=== PATIENT | female | born 1985 | race African-American/Black ===

== ENCOUNTER 2019-12-08 12:08 | Emergency (ER) | payer OTHER ==
[~2019-12-08] VITALS: Ht 172.7 cm; Wt 122.5 kg
[~2019-12-08 12:08] MED LIST: COLACE100 MG PO; IBUPROFEN 800800 MG PO; NORCO 5-325 TA1 EACH PO; PERCOCET 5-3251 EACH; PERCOCET 5-3251 EACH PO; PHENERGAN 25 MG25 M1 PO; ZOFRAN ODT4 MG PO
[2019-12-08 13:28] LABS: URINE BILIRUBIN NEGATIVE (Negative); URINE BLOOD 3+ (Negative); URINE CLARITY SL CLOUDY; URINE COLOR YELLOW; URINE GLUCOSE-RANDOM* NEGATIVE (Negative); URINE KETONES 1+ (Negative); URINE LEUKOCYTES-REFLEX 1+ (Negative); URINE NITRITE-REFLEX NEGATIVE (Negative); URINE PROTEIN (DIPSTICK) 1+ (Negative); URINE SPECIFIC GRAVITY 1.025 (1.005-1.035)
[2019-12-08 13:37] LABS: ABSOLUTE NEUTROPHILS 5.1 thou/uL (1.4-8.2); BASOPHILS 0.8 % (0.0-2.0); HEMATOCRIT 40.6 % (37.0-47.0); HEMOGLOBIN 12.8 gm/dL (12.0-15.0); LYMPHOCYTES 25.6 % (24.0-44.0); MCH 27.2 pg (26.0-34.0); MCHC 31.7 g/dL (28.0-37.0); MCV 85.8 fL (80.0-100.0); MONOCYTES 7.9 % (1.0-8.0); PLATELET COUNT 271 thou/uL (150-400); POLYS 63.7 % (36.0-66.0); RBC 4.73 mil/uL (4.20-5.00); RDW 15.1 % (10.5-14.5)
[2019-12-08 13:45] LABS: CASTS None Seen /LPF (None Seen); SQUAMOUS 4-10 Moderate /LPF (0-3); WBC CLUMPS Few (None Seen)
[2019-12-08 13:46] LABS: CRYSTALS None Seen /LPF (None Seen)
[2019-12-08 13:58] LABS: CALCIUM 8.6 mg/dL (8.5-10.1); POTASSIUM 3.4 mmol/L (3.5-5.1)
[2019-12-08 14:03] LABS: ALBUMIN 3.7 g/dL (3.4-5.0); TOTAL BILIRUBIN 0.3 mg/dL (0.2-1.0); TOTAL PROTEIN 7.2 g/dL (6.4-8.2)
[2019-12-08] MEDS ORDERED: NOHOMEMEDICATIONS (15:44)
[2019-12-08] MEDS ORDERED: TRAMADOL 50 MG50 MG PO ×2 (16:15→16:49)
[2019-12-08 16:18] VITALS: BP 99/63
== END 2019-12-08 16:30 | disposition home or self-care (01) ==
LOC: ER 12:08
PROVIDERS: Emergency Medicine
DX: N83.202 Unspecified ovarian cyst, left side (principal); R10.2 Pelvic and perineal pain

== ENCOUNTER 2019-12-10 12:37 | Emergency (ER) | payer OTHER ==
[~2019-12-10] VITALS: Ht 172.7 cm; Wt 127.0 kg
--- NOTE | ~2019-12-10 | EMS ---
[place] [id number] EMS Patient Care Report Name: YAMILET TAVERAS Room #: PRE M.R.#: [id number] Admission: Attend Phys: Discharge: Date of : 83 Report #: [id number] THIS REPORT FOR: //name// Report Transmitted: 12/10/2019 12:47 EMS Care Summary [place], [place]/[facility] Incident [id number] @ 12/10/2019 12:02 Incident Location [address] [place], [place] [id number] Patient YAMILET TAVERAS Female, 34 Years 1985 Patient Address [address] [place], [place] [id number] Patient History Ovarian Cysts, Patient Allergies No known allergies, Patient Medications None Reported, Chief Complaint ABD PAIN Disposition Transported No Lights/[place] Dispatch Reason Hemorrhage/Laceration Transported To [facility] Narrative DISPATCHED EMERGENCY ON A HEMORRHAGE. PUMPER 45 ON SCENE UPON ARRIVAL. 34 Y/O FEMALE AMBULATING TOWARD AMBULANCE WITHOUT INCIDENT. GCS 15 AND [address] [place] [address] EMS Patient Care Report Name: YAMILET TAVERAS Room #: PRE ER M.R.#: [id number] Admission: Attend Phys: Discharge: Date of : 83 Report #: [id number] CONSENTED FOR TX AND TRANSPORTATION. PT STATES THAT SHE HAS BEEN HAVING ABD PAIN X2 DAYS AND WAS SEEN IN THE ER YESTERDAY AND WAS TOLD SHE HAS AN OVARIAN CYST. WAS PRESCRIBED A MEDICATION BUT WAS UNABLE TO GET IT BECAUSE SHE COULDN'T AFFORD IT. SHARP/CONSTANT PAIN AT 10 TO ENTIRE ABD. PAIN UPON PALPITATION. NOTHING MAKES IT WORSE OR BETTER. NAUSEA X2 DAYS. VOMITED RED AND GREEN THIS MORNING BUT HAD ROTEL TO EAT. ASSISTED WITHOUT INCIDENT TO STRETCHER IN AMBULANCE. PLACED ON MONITOR. V/S'S OBTAINED. TRANSPORTED TO [facility]. ECG OBTAINED. REASSESSED ENROUTE. REMAINS GCS 15 AND ALERT. ATTEMPTED TO SEARCH FOR IV ESTABLISHMENT BUT UNABLE TO ATTEMPT DUE TO PT MOVEMENT. 2ND SET V/S'S OBTAINED. PAIN REMAINS UNCHANGED. REPORT CALLED TO HOSPITAL. MOVED WITHOUT INCIDENT TO ER HOSPITAL BED 12. PT CARE TRANSFERRED TO ED RN. PT BEGIN VOMITING. NURSE SIGNS FOR PT. Initial Vitals @12:29P: 66,R: 18,BP: 112/81,Pain: 10/10,GCS: 15,SpO2: 100,Revised Trauma: 12,GA Suspected: false @12:20P: 92,R: 20,BP: 158/93,Pain: 10/10,GCS: 15,Revised Trauma: 12, Assessments @12:19MENTAL:Person Oriented,Time Oriented,Place Oriented,Event Oriented,SKIN:HEENT:Head/Face: No Abnormalities,Neck/Airway: No Abnormalities,LUNG SOUNDS:General: Nausea,Left Upper: Tenderness,Right Upper: Tenderness,Right Lower: Tenderness,Left Lower: Tenderness,ABDOMEN:General: Nausea,Left Upper: Tenderness,Right Upper: Tenderness,Right Lower: Tenderness,Left Lower: Tenderness,PELVIS//GI:EXTREMITIES:Capillary Refill: Left Upper: < 2 Sec,Capillary Refill: Right Lower: < 2 Sec,Capillary Refill: Left Lower: < 2 Sec,Capillary Refill: Right Upper: < 2 Sec,Left Arm: No Abnormalities,Right Arm: No Abnormalities,Left Leg: No Abnormalities,Right Leg: No Abnormalities,PULSE:Radial: 2+ Normal,NEURO:No Abnormalities, Impression Abdominal Pain Procedures @12:273-Lead ECGResponse: UnchangedSucceeded@12:19ALS AssessmentResponse: UnchangedSucceeded@12:19StretcherResponse: Unchanged Timeline 12:01,Call Received 12:01,Dispatch Notified 12:02,Dispatched 12:04,En Route 12:17,On Scene 12:18,At Patient 12:19,ALS Assessment,Response: UnchangedSucceeded, 12:19,Stretcher,Response: [place] [address] EMS Patient Care Report Name: YAMILET TAVERAS MAUREEN Room #: PRE M.R.#: [id number] Admission: Attend Phys: Discharge: Date of : 83 Report #: [id number] 12:20,BP: 158/93 M,PULSE: 92,RR: 20 R,SPO2: Ox,ETCO2: ,BG: ,PAIN: 10,GCS: 15, 12:25,Depart Scene 12:27,3-Lead ECG,Response: UnchangedSucceeded, 12:29,BP: 112/81 M,PULSE: 66,RR: 18 R,SPO2: 100 Ox,ETCO2: ,BG: ,PAIN: 10,GCS: 15, 12:34,At Destination 12:50,Call Closed Disclaimer v1.1 Copyright 2020 [employer] This EMS Care Summary contains data elements from the applicable legal record (which may be displayed differently). It is designed to provide pertinent information for the following purposes: continuity of care, clinical quality, and state data reporting. The complete legal record is available to ED staff and administrators of the receiving hospital in [employer] Patient Tracker. All data is provided "as is."
[~2019-12-10 12:37] MED LIST changes: +NOHOMEMEDICATIONS; +TRAMADOL 50 MG50 MG PO
[2019-12-10 13:07] LABS: ABSOLUTE NEUTROPHILS 9.8 thou/uL (1.4-8.2); BASOPHILS 0.4 % (0.0-2.0); EOSINOPHILS 0.5 % (0.0-3.0); HEMATOCRIT 40.3 % (37.0-47.0); HEMOGLOBIN 13.1 gm/dL (12.0-15.0); LYMPHOCYTES 8.2 % (24.0-44.0); MCH 27.4 pg (26.0-34.0); MCHC 32.5 g/dL (28.0-37.0); MCV 84.4 fL (80.0-100.0); MONOCYTES 4.5 % (1.0-8.0); PLATELET COUNT 254 thou/uL (150-400); POLYS 86.4 % (36.0-66.0); RBC 4.78 mil/uL (4.20-5.00); RDW 14.9 % (10.5-14.5); WBC 11.4 thou/uL (4.0-11.0)
[2019-12-10 13:13] LABS: CALCIUM 8.7 mg/dL (8.5-10.1); POTASSIUM 3.5 mmol/L (3.5-5.1)
[2019-12-10 13:19] LABS: ALBUMIN 3.7 g/dL (3.4-5.0); TOTAL BILIRUBIN 0.4 mg/dL (0.2-1.0); TOTAL PROTEIN 7.3 g/dL (6.4-8.2)
[2019-12-10 15:24] LABS: URINE BILIRUBIN NEGATIVE (Negative); URINE BLOOD 1+ (Negative); URINE CLARITY CLEAR; URINE COLOR YELLOW; URINE GLUCOSE-RANDOM* NEGATIVE (Negative); URINE KETONES TRACE (Negative); URINE NITRITE-REFLEX NEGATIVE (Negative); URINE PROTEIN (DIPSTICK) NEGATIVE (Negative); URINE SPECIFIC GRAVITY 1.015 (1.005-1.035); URINE UROBILINOGEN 0.2 E.U./dl (0.2-1.0)
[2019-12-10 15:30] LABS: URINE LEUKOCYTES-REFLEX 2+ (Negative)
[2019-12-10 15:38] LABS: CASTS None Seen /LPF (None Seen); CRYSTALS None Seen /LPF (None Seen); SQUAMOUS 4-10 Moderate /LPF (0-3)
[2019-12-10 15:39] LABS: URINE RBC 0-2 Rare /HPF (0-2); URINE WBC-REFLEX 6-15 Few /HPF (0-5)
[2019-12-10 15:40] LABS: BACTERIA-REFLEX 1-9 Few /HPF (None Seen)
[2019-12-10] MEDS ORDERED: ONDANSETRON HCL4 M2 PO (17:29)
[2019-12-10] MEDS ORDERED: NORCO 5-325 TA1 EAC2 PO (17:29)
[2019-12-10] MEDS ORDERED: DOXYCYCLINE 10100 MG PO (17:29)
[2019-12-10 17:43] VITALS: BP 97/61
== END 2019-12-10 17:44 | disposition home or self-care (01) ==
LOC: ER 12:37
PROVIDERS: Physician Assistant
DX: N83.202 Unspecified ovarian cyst, left side (principal); Z79.899 Other long term (current) drug therapy

== ENCOUNTER 2019-12-12 16:41 | Emergency (ER) | payer OTHER ==
[~2019-12-12] VITALS: Ht 172.7 cm; Wt 122.5 kg
[~2019-12-12 16:41] MED LIST changes: +DOXYCYCLINE 10100 MG PO; +NORCO 5-325 TA1 EAC2 PO; +ONDANSETRON HCL4 M2 PO
[2019-12-12 17:07] VITALS: BP 144/103
== END 2019-12-12 18:37 | disposition home or self-care (01) ==
LOC: ER 16:41
DX: A54.9 Gonococcal infection, unspecified (principal); Z79.2 Long term (current) use of antibiotics; Z79.899 Other long term (current) drug therapy

== ENCOUNTER 2019-12-15 13:38 | Emergency (ER) | payer OTHER ==
[~2019-12-15] VITALS: Ht 172.7 cm; Wt 122.5 kg
[2019-12-15] MEDS ORDERED: BENTYL 10 MG CA10 M1 PO (15:32)
[2019-12-15] MEDS ORDERED: TYLENOL325 MG PO (15:32)
[2019-12-15 15:41] VITALS: BP 122/80
== END 2019-12-15 15:41 | disposition home or self-care (01) ==
LOC: ER 13:38
DX: R10.84 Generalized abdominal pain (principal); Z79.2 Long term (current) use of antibiotics; Z79.899 Other long term (current) drug therapy

== ENCOUNTER 2021-02-06 08:34 | Emergency (ER) | payer OTHER ==
[~2021-02-06] VITALS: Ht 172.7 cm; Wt 122.5 kg
[~2021-02-06 08:34] MED LIST changes: +BENTYL 10 MG CA10 M1 PO; +TYLENOL325 MG PO
[2021-02-06 10:13] LABS: ABSOLUTE NEUTROPHILS 3.4 thou/uL (1.4-8.2); BASOPHILS 0.9 % (0.0-2.0); HEMATOCRIT 36.7 % (37.0-47.0); HEMOGLOBIN 11.9 gm/dL (12.0-15.0); LYMPHOCYTES 26.5 % (24.0-44.0); MCH 27.5 pg (26.0-34.0); MCHC 32.3 g/dL (28.0-37.0); MCV 85.4 fL (80.0-100.0); MONOCYTES 7.3 % (1.0-8.0); PLATELET COUNT 227 thou/uL (150-400); POLYS 60.3 % (36.0-66.0); RDW 14.7 % (10.5-14.5); WBC 5.6 thou/uL (4.0-11.0)
[2021-02-06 10:17] LABS: ANION GAP 6 mmol/L (7-16); BUN 9 mg/dL (7-18); CALCIUM 7.6 mg/dL (8.5-10.1); CHLORIDE 111 mmol/L (98-107); CO2 25 mmol/L (21-32); CREATININE 0.9 mg/dL (0.6-1.0); GLUCOSE 91 mg/dL (74-106); POTASSIUM 3.8 mmol/L (3.5-5.1); SODIUM 142 mmol/L (136-145)
[2021-02-06 10:27] LABS: SGOT 11 U/L (15-37); SGPT 17 U/L (14-59); TOTAL BILIRUBIN 0.2 mg/dL (0.2-1.0); TOTAL PROTEIN 6.3 g/dL (6.4-8.2)
[2021-02-06] MEDS ORDERED: IBUPROFEN 800800 MG PO (11:19)
[2021-02-06] MEDS ORDERED: CYCLOBENZAPRINE5 MG PO (11:19)
[2021-02-06] MEDS ORDERED: CEPHALEXIN500 MG PO (11:21)
[2021-02-06 11:32] VITALS: BP 101/65
--- NOTE | 2021-02-07 08:54 | EKG ---
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
== END 2021-02-06 11:32 | disposition home or self-care (01) ==
LOC: ER 08:34
PROVIDERS: Emergency Medicine
DX: N64.4 Mastodynia (principal); N61.0 Mastitis without abscess; R07.89 Other chest pain